=== PATIENT | female | born 1960 | race Caucasian/White ===

== ENCOUNTER 2016-04-30 13:37 | Outpatient (CLI) | payer MEDICAID | END 2016-04-30 13:38 | disposition home or self-care (01) | DX: E03.9 Hypothyroidism, unspecified (principal) ==

== ENCOUNTER 2017-03-21 16:45 | Emergency (ER) | payer MEDICAID ==
[2017-03-21 17:03] VITALS: BP 132/84
[2017-03-21] MEDS ORDERED: IBUPROFEN 800 MG TABLET PO STA (17:27)
--- NOTE | 2017-03-21 17:30 | ED Physician Documentation ---
PD HPI LOWER EXT INJURY - Stated complaint Stated Complaint: ANKLE INJURY - Chief complaint Chief Complaint: Ext Problem - History obtained from History obtained from: Patient - History of Present Illness PD HPI LOW EXT INJURY LOCATION: Left, Ankle Type of injury: Fall Where injury occurred: Other (stairs) Timing - onset: Today (this morning) Worsened by: Moving, Other (weight bearing) Associated symptoms: No: Weakness, Numbness, Swelling - Additional information Additional information: The patient is a 56-year-old female who fell on a marble staircase this morning , twisting her left ankle. She has been ambulatory since that time, but has experienced pain with weightbearing. When she fell she also impacted her right lower back and has had mild lower back pain. She denies any other injuries. Past medical history is significant for remote left distal fibular fracture. Review of Systems Constitutional: denies: Fever GI: denies: Abdominal Pain Skin: denies: Abrasion (s), Laceration (s) Musculoskeletal: reports: Back pain (Mild right lower back pain.), Joint pain ( Left ankle), Pain with weight bearing. denies: Neck pain Neurologic: denies: Focal weakness, Numbness, Headache, Head injury PD PAST MEDICAL HISTORY - Past Medical History Past Medical History: Yes Cardiovascular: None Respiratory: None Endocrine/Autoimmune: HyPOthyroidism HEENT: Other Psych: Depression Derm: None - Past Surgical History Past Surgical History: No - Present Medications Home Medications: Ambulatory Orders Medication Instructions Recorded Confirmed Levothyroxine Sodium [Synthroid] 125 mcg PO DAILY 08/24/14 03/21/17 buPROPion [Wellbutrin Sr] 150 mg PO BID 08/24/14 03/21/17 clonazePAM [Clonazepam] 1 mg PO DAILY PRN 03/21/17 03/21/17 - Allergies Allergies/Adverse Reactions: Allergies Allergy/AdvReac Type Severity Reaction Status Date / Time escitalopram oxalate * Allergy Hives Verified 03/21/17 17:02 [From [employer]osphere] - Social History Does the pt smoke?: No Smoking Status: Never smoker Does the pt drink ETOH?: Yes Does the pt have substance abuse?: No - Immunizations Immunizations are current?: Yes - POLST Patient has POLST: No PD ED PE NORMAL - Vitals Vital signs reviewed: Yes (Normal) - General General: Alert and oriented X 3, Well developed/nourished - HEENT HEENT: Atraumatic - Neck Neck: No bony TTP - Respiratory Respiratory: No respiratory distress - Back Back: Other (There is mild right paralumbar tenderness to palpation, without tenderness over the spinous processes. There is no ecchymosis and no abrasions. ) - Derm Derm: No rash - Extremities Extremities: No edema, No calf tenderness / cord, Other (There is tenderness palpation over the posterior aspect of the left lateral ankle, without tenderness over the bony prominence of the lateral malleolus. There is no tenderness at the medial malleolus, the fifth metatarsal base, or the proximal fibula. Distal neurovascular is intact.) - Neuro Neuro: Alert and oriented X 3, No motor deficit, No sensory deficit, Normal speech Results - Vitals Vitals: Vital Signs - 24 hr 03/21/17 16:58 Temperature 36.4 C L Heart Rate 85 Respiratory 14 Rate Blood Pressure 132/84 H O2 Saturation 100 Oxygen O2 Source Room air - Rads (name of study) Left ankle Radiology: Prelim report reviewed, EMP read contemporaneously, See rad report ( No acute fracture. Old healed left distal fibular fracture.) Procedures - Splint (location) Left ankle Splint applied by: Nurse Type of splint: Ankle airsplint Other: Patient tolerated well, No complications, Neurovascular intact PD MEDICAL DECISION MAKING - ED course Complexity details: reviewed results, re-evaluated patient, considered differential, d/w patient ED course: The patient's presentation is most consistent with left ankle sprain. There is no evidence of acute fracture on x-ray examination. Treatment in the emergency department included administration of ibuprofen 800 mg orally, and application of an ankle air splint. The patient prefers not to use crutches, and is able to bear weight with ambulation. I discussed with her the expected course of injury, symptomatic treatment and outpatient follow-up, as well as potentially worrisome signs or symptoms that should prompt reevaluation in the emergency department. Departure - Departure Disposition: 01 Home, Self Care Clinical Impression: Left ankle sprain Qualifiers: Encounter type: initial encounter Involved ligament of ankle: unspecified ligament Qualified Code(s): S93.402A - Sprain of unspecified ligament of left ankle, initial encounter Condition: Stable Instructions: ED Sprain Ankle W X Ray Follow-Up: Lauren Church ARNP [Primary Care Provider] - Comments: Keep your left leg elevated as much the time as possible. Apply ice pack intermittently for the first 2 days. You can use Tylenol or ibuprofen as needed for discomfort. Let pain be your guide to activity level. Follow up with your primary physician within 2 weeks if not starting to improve. Return to the emergency department if you develop markedly increasing pain, or otherwise worsening symptoms.
--- NOTE | 2017-03-21 17:37 | XRAY Report ---
EXAM: LEFT ANKLE RADIOGRAPHY EXAM DATE: 03/21/2017 05:17 PM. CLINICAL HISTORY: Left ankle injury. COMPARISON: None. TECHNIQUE: 3 views. FINDINGS: Bones: There is a deformity consistent with an old healed fracture of the inferior fibula diaphysis. No acute fracture demonstrated. Joints: Normal. No effusion. No subluxations. The ankle mortise is normally aligned. Soft Tissues: Normal. No soft tissue swelling. IMPRESSION: 1. No acute fracture. 2. Old healed inferior fibula fracture. [facility] Referring Provider Line: [phone] SITE ID: [id number]
== END 2017-03-21 17:50 | disposition home or self-care (01) ==
LOC: ED 16:45
DX: S93.402A Sprain of unspecified ligament of left ankle, initial encounter (principal); W10.9XXA Fall (on) (from) unspecified stairs and steps, initial encounter; X50.9XXA Other and unspecified overexertion or strenuous movements or postures, initial encounter
CPT/HCPCS: 73610; 99282; 99283; A9270

== ENCOUNTER 2017-04-18 14:23 | Outpatient (CLI) | payer MEDICAID ==
--- NOTE | 2017-04-18 16:37 | DEXA Report ---
DEXA SCAN: 04/18/2017 CLINICAL INDICATION: Postmenopausal. TECHNIQUE: Dual energy x-ray absorptiometry (DXA) was performed on a [employer] system. Regions measured are the AP spine, femoral neck, and, if needed, forearm. COMPARISON: None. In accordance with the International Society for Clinical Densitometry (ISCD) guidelines, data from previous exams may be reanalyzed using current recommendations and techniques. This is done to allow a more accurate basis for comparison with the current study. FINDINGS The data for the lumbar spine is as follows: REGION BMD (g/cm/cm) T-SCORE Z-SCORE L1 0.797 -2.8 -1.7 L2 0.836 -3.0 -2.0 L3 0.922 -2.3 -1.2 L4 0.990 -1.8 -0.7 TOTAL L1-L4 0.895 -2.4 -1.3 NOTE: All evaluable vertebrae are used for classification. The data for the hip is as follows: REGION BMD (g/cm/cm) T-SCORE Z-SCORE Neck 0.739 -2.2 -1.0 TOTAL 0.734 -2.2 -1.3 NOTE: The femoral neck or total proximal femur, whichever is lowest, is used for classification. IMPRESSION THE WHO CLASSIFICATION BASED ON THE INTERNATIONAL REFERENCE STANDARD IS OSTEOPENIA. THE FRACTURE RISK IS INCREASED. RECOMMENDATION: Patients with diagnosis of osteoporosis or osteopenia should have regular bone mineral density assessment. For those eligible for Medicare, routine testing is allowed once every 2 years. Testing frequency can be increased for patients who have rapidly progressing disease or for those who are receiving medical therapy to restore bone mass. COMMENT: World Health Organization (WHO) definitions for osteoporosis and osteopenia: NORMAL BMD: T-score at 1.0 or higher, fracture risk is low. OSTEOPENIA BMD: T-score between 1.0 and -2.5, fracture risk is increased. OSTEOPOROSIS BMD: T-score at 2.5 or lower, fracture risk high. National Osteoporosis Foundation recommends: 1. Obtain adequate dietary calcium (at least 1200 mg per day) and vitamin D (400 -800 international units per day). 2. Participate, as appropriate, in regular weightbearing and muscle- strengthening exercise. 3. Avoid tobacco use and reduce alcohol and caffeine intake. 4. For more detailed information see the website at www.NOF.org. TD: 04/18/2017 16:17 [email or web address]
== END 2017-04-18 14:24 | disposition home or self-care (01) ==
LOC: DI 14:23
PROVIDERS: ATTEND Nurse Practitioner Family
DX: M85.89 Other specified disorders of bone density and structure, multiple sites (principal); N95.9 Unspecified menopausal and perimenopausal disorder
CPT/HCPCS: 77080

== ENCOUNTER 2017-07-04 18:37 | Emergency (ER) | payer MEDICAID ==
[2017-07-04 18:50] VITALS: BP 111/90
[2017-07-04] MEDS ORDERED: CYCLOBENZAPRINE 10 MG Prepack 2 PO PRN (19:44)
--- NOTE | 2017-07-04 19:45 | ED Physician Documentation ---
PD HPI BACK INJURY - Stated complaint Stated Complaint: BACK PX - History obtained from History obtained from: Patient - History of Present Illness Location: Other (She fell down a flight of stairs about 2 weeks ago, she had back pain at the outset and then got better and then got worse again and complains of intermittently severe pain to the left SI area and parathoracic muscles this much worse with bending. She has avoided taking NSAIDs because she has a colonoscopy scheduled on Friday.) Review of Systems Constitutional: denies: Fever, Chills GI: denies: Abdominal Pain, Nausea, Vomiting Skin: denies: Rash, Lesions PD PAST MEDICAL HISTORY - Past Medical History Past Medical History: Yes Cardiovascular: None Respiratory: None Endocrine/Autoimmune: HyPOthyroidism HEENT: Other Psych: Depression Derm: None - Past Surgical History Past Surgical History: No - Present Medications Home Medications: Ambulatory Orders Medication Instructions Recorded Confirmed Levothyroxine Sodium [Synthroid] 125 mcg PO DAILY 08/24/14 03/21/17 buPROPion [Wellbutrin Sr] 150 mg PO BID 08/24/14 03/21/17 clonazePAM [Clonazepam] 1 mg PO DAILY PRN 03/21/17 03/21/17 Cyclobenzaprine [Flexeril] 10 mg PO TID PRN #20 tablet 07/04/17 - Allergies Allergies/Adverse Reactions: Allergies Allergy/AdvReac Type Severity Reaction Status Date / Time escitalopram oxalate * Allergy Hives Verified 03/21/17 17:02 [From Lexapro] - Social History Does the pt smoke?: No Smoking Status: Never smoker Does the pt drink ETOH?: Yes Does the pt have substance abuse?: No - Immunizations Immunizations are current?: Yes - POLST Patient has POLST: No PD ED PE NORMAL - Vitals Vital signs reviewed: Yes - General General: Alert and oriented X 3, No acute distress - Neck Neck: Supple, no meningeal sign, No bony TTP - Back Back: No spinal TTP, Other (She is tender to the parathoracic muscles bilaterally and deep in the SI notch. The patient has equal and normal Achilles and patellar reflexes bilaterally. Normal sensation in all areas of the legs. Patient denies saddle anesthesia. Normal strength in flexion-extension at the ankles, knees, and flexion of the hips.) - Neuro Neuro: Alert and oriented X 3, Normal speech - Psych Psych: Normal mood, Normal affect Results - Vitals Vitals: Vital Signs - 24 hr 07/04/17 18:45 Temperature 36.3 C L Heart Rate 88 Respiratory 16 Rate Blood Pressure 111/90 H O2 Saturation 99 Oxygen O2 Source Room air - Rads (name of study) L spine Radiology: EMP read contemporaneously (No frx, Bilateral L4-L5 and L5-S1 facet osteoarthritis, Spondylitic grade 1 anterolisthesis, L4 on L5.) T spine Radiology: EMP read contemporaneously (NAD) Departure - Departure Disposition: Home, Self Care Clinical Impression: Thoracic back sprain Qualifiers: Encounter type: initial encounter Qualified Code(s): S23.9XXA - Sprain of unspecified parts of thorax, initial encounter Lumbar back sprain Qualifiers: Encounter type: initial encounter Qualified Code(s): S33.5XXA - Sprain of ligaments of lumbar spine, initial encounter Fall down stairs Qualifiers: Encounter type: initial encounter Qualified Code(s): W10.8XXA - Fall (on) (from ) other stairs and steps, initial encounter Condition: Good Record reviewed to determine appropriate education?: Yes Instructions: ED Back Care Tips, ED Low Back Pain Injury Prescriptions: Cyclobenzaprine [Flexeril] 10 mg PO TID PRN #20 tablet PRN Reason: Pain Comments: Follow-up with your primary care physician and discuss physical therapy.
--- NOTE | 2017-07-04 20:30 | XRAY Report ---
EXAM: THORACIC SPINE RADIOGRAPHY EXAM DATE: 07/04/2017 07:53 PM. CLINICAL HISTORY: Back inj. COMPARISON: Lumbar spine today. TECHNIQUE: 2 views. FINDINGS: Alignment: Minimal right convex lower thoracic scoliosis. No subluxation. Bones: No fractures or bone lesions. Disks: Normal. Disk heights are maintained. Soft Tissues: Normal. The visualized lungs and cardiomediastinal silhouette are normal. IMPRESSION: No fracture or subluxation is identified in the thoracic spine. [facility] Referring Provider Line: [phone] SITE ID: [id number]
--- NOTE | 2017-07-04 20:30 | XRAY Preliminary Report ---
Exam: XR THORACIC SPINE 2 VIEW IMPRESSION: No fracture or subluxation is identified in the thoracic spine. [facility] SITE ID: [id number]
--- NOTE | 2017-07-04 20:32 | XRAY Preliminary Report ---
Exam: XR LUMBAR SPINE 2 VIEW IMPRESSION: 1. No fracture in the lumbar spine. 2. Bilateral L4-L5 and L5-S1 facet osteoarthritis. 3. Spondylotic grade 1 anterolisthesis L4 on L5. [facility] SITE ID: [id number]
--- NOTE | 2017-07-04 20:32 | XRAY Report ---
EXAM: LUMBOSACRAL SPINE RADIOGRAPHY EXAM DATE: 07/04/2017 08:07 PM. CLINICAL HISTORY: Back inj. fall downstairs 2 weeks ago. Mid to low back pain persists. COMPARISONS: Thoracic spine today. TECHNIQUE: 2 views. FINDINGS: Alignment: Minimal left convex curvature at the thoracolumbar junction. 5 mm grade 1 anterolisthesis L4 on L5. Bones: Five xcz-rhy-rhqttwg lumbar vertebral bodies are present. No fractures or bone lesions. Disks: Normal. Disk heights are maintained. Facets: Bilateral facet sclerosis consistent with osteoarthritis at L4-L5 and L5-S1. Sacroiliac Joints: Unremarkable. Soft Tissues: Normal. The visualized bowel gas pattern is normal. IMPRESSION: 1. No fracture in the lumbar spine. 2. Bilateral L4-L5 and L5-S1 facet osteoarthritis. 3. Spondylotic grade 1 anterolisthesis L4 on L5. [facility] Referring Provider Line: [phone] SITE ID: [id number]
== END 2017-07-04 20:37 | disposition home or self-care (01) ==
LOC: ED 18:37
DX: S23.3XXA Sprain of ligaments of thoracic spine, initial encounter (principal); S33.5XXA Sprain of ligaments of lumbar spine, initial encounter; W10.8XXA Fall (on) (from) other stairs and steps, initial encounter; M47.897 Other spondylosis, lumbosacral region
CPT/HCPCS: 72070; 72100; 99282; 99283

== ENCOUNTER 2017-07-28 08:41 | Outpatient (CLI) | payer MEDICAID ==
--- NOTE | 2017-07-28 10:25 | MRI Report ---
EXAM: MRI LUMBAR SPINE WITHOUT CONTRAST EXAM DATE: 07/28/2017 09:19 AM. CLINICAL HISTORY: Acute low back pain. Previous fall 4 weeks ago. Buttock pain. COMPARISON: Lumbar spine radiography from 07/04/2017. TECHNIQUE: Multiplanar, multisequence T1-weighted and fluid-sensitive sequences of the lumbar spine f rom T12 to S1 without contrast. Other: None. FINDINGS: Spinal Cord: The conus terminates at L1-L2. The conus medullaris and cauda equina are unremarkable. Alignment: Grade 1 anterolisthesis at L4-L5 by approximately 3 mm. Bone Marrow: Five mpl-xtt-ncsrlfu lumbar vertebral bodies are assumed. There is a subacute-appearing fracture of the sacrum which is not completely imaged or evaluated on this exam. Disk Levels/Facets: L5-S1: Small posterior central disk protrusion with annular fissure. Mild left facet arthropathy. Mil d foraminal stenoses. No canal stenosis. L4-L5: Severe facet arthropathy. Small facet joint effusions. Mild canal stenosis. Mild foraminal ally noses. L3-L4: Small posterior central disk protrusion. Mild canal stenosis. No foraminal stenoses. L2-L3: Small to moderate size posterior left paracentral-foraminal disk extrusion. The disk extrusion extends into the anterior superior aspect of the left neural foramen. The overall size of the disk e xtrusion is approximately 1.8 cm superior to inferior by 0.4 cm AP by 1.6 cm medial to lateral. The d isk extrusion abuts the left L2 nerve within the neural foramen. Mild left-sided canal and subarticul ar zone stenosis. Mild to moderate left foraminal stenosis. L1-L2: Unremarkable. T12-L1: Minimal disk bulge. Minimal canal narrowing. No foraminal stenoses. Musculature: Normal. No edema or fatty atrophy. Other: The partially visualized retroperitoneum is unremarkable. IMPRESSION: 1. Subacute-appearing fracture of the sacrum which is not completely imaged or evaluated on this exam . If warranted, consider a follow-up MRI or CT of the sacrum. 2. Grade 1 degenerative anterolisthesis at L4-L5. Mild canal and foraminal stenoses. 3. Small to moderate-sized posterior left paracentral-foraminal disk extrusion at L2-L3. The disk ext rusion abuts the left L2 nerve within the left neural foramen. Moderate left foraminal stenosis. Mild left-sided canal and subarticular zone stenosis. 4. Small posterior central disk protrusion with annular fissure at L5-S1. Mild foraminal stenoses. 5. Small posterior central disk protrusion and mild canal stenosis at L3-L4. Comment: The following findings are so common in adults without low back pain that while we report th eir presence, they must be interpreted with caution and in the context of the clinical situation. (Re dmitri Collins et al, Spine 2001) Prevalence of findings in patients without low back pain: Disk degeneration (any evidence): 92% Disk desiccation/T2 signal loss: 83% Disk height loss: 56% Disk bulge: 64% Disk protrusion: 32% Annular tear/high intensity zone: 38% [facility] Referring Provider Line: [phone] SITE ID: [id number]
== END 2017-07-28 08:42 | disposition home or self-care (01) ==
LOC: DI 08:41
PROVIDERS: ATTEND Nurse Practitioner Family
DX: M47.896 Other spondylosis, lumbar region (principal); M51.26 Other intervertebral disc displacement, lumbar region; M51.27 Other intervertebral disc displacement, lumbosacral region; M47.897 Other spondylosis, lumbosacral region; S32.10XA Unspecified fracture of sacrum, initial encounter for closed fracture; M43.16 Spondylolisthesis, lumbar region
CPT/HCPCS: 72148

== ENCOUNTER 2018-05-08 14:25 | Outpatient (CLI) | payer MEDICAID | END 2018-05-08 14:26 | disposition home or self-care (01) | LOC: LAB.F 14:25 | PROVIDERS: ATTEND Nurse Practitioner | DX: E03.9 Hypothyroidism, unspecified (principal) | CPT/HCPCS: 36415; 84443 ==

== ENCOUNTER 2018-07-09 10:03 | Outpatient (CLI) | payer MEDICAID ==
--- NOTE | 2018-07-10 08:32 | DEXA Report ---
Reason: OSTEOPOROSIS Procedure Date: 07/09/2018 Accession Number: [id number] / [id number] Procedure: DEX - Dexa Spine and/or Hip CPT Code: FULL RESULT: EXAM: Dexa Spine and/or Hip DATE: 07/09/2018 10:43 AM CLINICAL HISTORY: OSTEOPOROSIS TECHNIQUE: Dual energy x-ray absorptiometry (DXA) was performed on a [employer] System. Regions measured are the AP Spine, femoral neck, and if needed forearm. COMPARISON: 04/18/2017. In accordance with the International Society for Clinical Densitometry (ISCD) guidelines, data from previous exams may be reanalyzed using current recommendations and techniques. This is done to allow a more accurate basis for comparison with the current study. FINDINGS: The data for the lumbar spine is as follows: BMD (g/cm/cm) T-SCORE Z-SCORE REGION L1 0.731 -3.3 -2.0 L2 0.789 -3.4 -2.1 L3 0.847 -2.9 -1.6 L4 0.932 -2.2 -0.9 TOTAL 0.838 -2.9 -1.5 NOTE: All evaluable vertebrae are used for classification The data for the hip is as follows: BMD (g/cm/cm) T-SCORE Z-SCORE REGION Neck 0.736 -2.2 -0.9 TOTAL 0.682 -2.6 -1.6 NOTE: The femoral neck or total proximal femur, whichever is lowest, is used for classification. DXA RESULTS SUMMARY: Spine SCAN DATE [age] BMD CHANGE VS CHANGE VS PREVIOUS PREVIOUS % 07[birth year]09[birth year]2018 57.5 0.838 -0.057* -6.4* 04[birth year]18/2017 58.3 0.898 * Denotes significant change at the 95% confidence level. Denotes dissimilar scan types or analysis methods. DXA RESULTS SUMMARY: Hip SCAN DATE [age]GE BMD CHANGE VS CHANGE VS PREVIOUS PREVIOUS % [birth year]09[birth year]2018 59.5 0.682 -0.052* -7.1* 04[birth year]18/2017 58.3 0.734 * Denotes significant change at the 95% confidence level. Denotes dissimilar scan types or analysis methods. IMPRESSION: THE WHO CLASSIFICATION BASED ON THE INTERNATIONAL REFERENCE STANDARD IS OSTEOPOROSIS. THE FRACTURE RISK IS HIGH. RECOMMENDATION: Patients with diagnosis of osteoporosis or osteopenia should have regular bone mineral density assessment. For those eligible for Medicare, routine testing is allowed once every 2 years. Testing frequency can be increased for patients who have rapidly progressing disease or for those who are receiving medical therapy to restore bone mass. COMMENT: World Health Organization (WHO) definitions for osteoporosis and osteopenia: NORMAL BMD: T-score at -1.0 or higher, fracture risk is low OSTEOPENIA BMD: T-score between -1.0 and -2.5, fracture risk is increased. OSTEOPOROSIS BMD: T-score at -2.5 or lower, fracture risk is high. National Osteoporosis Foundation recommends: 1. Obtain adequate dietary calcium (at least 1200 mg per day) and vitamin D (400-800 international units per day). 2. Participate, as appropriate, in regular weightbearing and muscle-strengthening exercise. 3. Avoid tobacco use and reduce alcohol and caffeine intake. 4. For more detailed information see the website at www.NOF.org.
== END 2018-07-09 10:04 | disposition home or self-care (01) ==
LOC: DI 10:03
PROVIDERS: ATTEND Nurse Practitioner
DX: M81.0 Age-related osteoporosis without current pathological fracture (principal)
CPT/HCPCS: 77080

== ENCOUNTER 2018-10-12 14:04 | Outpatient (CLI) | payer MEDICAID ==
--- NOTE | 2018-10-13 09:02 | Mammography Report ---
Reason: MAMMOGRAM YEARLY SCREENING Procedure Date: 10/12/2018 Accession Number: [id number] / [id number] Procedure: [facility] - Screening Mammo w/Gustavo CPT Code: FULL RESULT: EXAM: Screening Mammo w/Gustavo DATE: 10/12/2018 2:38 PM CLINICAL HISTORY: Screening encounter. History of late childbearing and early menses. TECHNIQUE: (B) - Bilateral CC and MLO views were obtained. COMPARISON: 12/07/2014. PARENCHYMAL PATTERN: (A) - The breast(s) demonstrate(s) scattered fibroglandular densities. FINDINGS: There are no suspicious masses, calcifications, or areas of distortion. IMPRESSION: 1 RECOMMENDATION: (ANNUAL) - Recommend routine annual screening mammography. BI-RADS CATEGORY: (1) - Negative. STANDARD QUALIFYING STATEMENTS: 1. This examination was not reviewed with the aid of Computer-Aided Detection (CAD). 2. A negative or benign imaging report should not preclude biopsy if clinically suspicious findings are present. 3. Dense breasts may obscure an underlying neoplasm. 4. This examination was reviewed with the aid of 3D breast imaging (tomosynthesis).
== END 2018-10-12 14:05 | disposition home or self-care (01) ==
LOC: DI 14:04
PROVIDERS: ATTEND Nurse Practitioner
DX: Z12.31 Encounter for screening mammogram for malignant neoplasm of breast (principal)
CPT/HCPCS: 77063; 77067